=== PATIENT | female | born 1970 | race Caucasian/White ===

== ENCOUNTER 2016-10-04 20:47 | Emergency (ER) | payer MEDICARE ==
[~2016-10-04 20:47] MED LIST: PHENERGAN12.5 MG PO
[2016-10-04] MEDS ORDERED: NO MEDICATIONS (20:51)
== END 2016-10-04 20:51 | disposition left against medical advice (07) ==
LOC: SED 20:47
DX: Z53.21 Procedure and treatment not carried out due to patient leaving prior to being seen by health care provider (principal)